=== PATIENT | female | born 1965 | race Caucasian/White ===

== ENCOUNTER 2018-06-11 14:36 | Emergency (ER) | payer MEDICAID, OTHER ==
[~2018-06-11] VITALS: Ht 157.5 cm; Wt 65.8 kg
--- NOTE | 2018-06-11 15:09 | ED General ---
General Chief Complaint: Cardiac/General Problems Stated Complaint: HTN Source of Information: Patient, Family Exam Limitations: No Limitations History of Present Illness Date Seen by Provider: Jun 11, 2018 Time Seen by Provider: 15:02 Initial Comments This 52-year-old female presents out of her blood pressure medicine. The patient takes hydrochlorothiazide 50 mg a day and lisinopril 20 mg a day. Patient called EMS. The patient's blood pressure was elevated at the scene but the patient was asymptomatic. Patient was given a nitroglycerin in route by the paramedics and the patient's blood pressure decreased from a systolic greater than 200 to a systoloc of 180 in the emergency department. Date is the patient's intent to employ [facility] next week for further medical care. Allergies and Home Medications Patient Home Medication List Home Medication List Reviewed: Yes Review of Systems Constitutional: No chills, No fever EENTM: No hearing loss Respiratory: No cough Cardiovascular: No chest pain Gastrointestinal: No abdominal pain Genitourinary: No decreased output : No Musculoskeletal: No back pain Skin: No change in color Psychiatric/Neurological: No Symptoms Reported Hematologic/Lymphatic: No Symptoms Reported Immunological/Allergic: no symptoms reported Past Xenmqfv-Gygwuh-Fhyzjy Hx Past Med/Social Hx: Reviewed Nursing Past Med/Soc Hx Physical Exam Vital Signs Capillary Refill : Height, Weight, BMI Height: '" Weight: lbs. oz. kg; BMI Method: General Appearance: No Apparent Distress, WD/WN Eyes: Bilateral Eye Normal Inspection, Bilateral Eye PERRL HEENT: Normal ENT Inspection Neck: Normal Inspection Respiratory: Lungs Clear Cardiovascular: Regular Rate, Rhythm Gastrointestinal: Normal Bowel Sounds Neurologic/Psychiatric: Alert, Oriented x3, No Motor/Sensory Deficits, Normal Mood/Affect Skin: Normal Color, Warm/Dry Progress/Results/Core Measures Suspected Sepsis SIRS Temperature: Pulse: Respiratory Rate: Blood Pressure / Mean: Results/Orders Vital Signs/I&O Capillary Refill : Progress Note : Time: 15:10 Progress Note The patient was given 30 day prescriptions for lisinopril 20 mg once a day and Hydrocort thiazide 50 mg once a day. She was asked to follow-up with [facility] on Thursday. She is asked to return for any problems or questions. Departure Impression Primary Impression: Hypertension Qualified Codes: I10 - Essential (primary) hypertension Disposition: HOME, SELF-CARE Condition: Improved Departure-Patient Inst. Decision time for Depature: 15:11 Referrals: [facility],LOCAL PHYSICIAN (PCP) Primary Care Physician Patient Instructions: High Blood Pressure (DC) Add. Discharge Instructions: Hydrochlorothiazide and lisinopril as prescribed. Close follow-up with health Thursday. Return if any problems or questions. All discharge instructions reviewed with patient and/or family. Voiced understanding. HAWA WOODY MD Jun 11, 2018 15:09
[2018-06-11 15:28] VITALS: BP 170/87
== END 2018-06-11 15:28 | disposition home or self-care (01) ==
LOC: ER 14:38
DX: I10 Essential (primary) hypertension (principal)

== ENCOUNTER → 2018-10-19 | Outpatient (CLI) | payer MEDICAID | LOC: CARD 12:28 | PROVIDERS: ATTEND Nurse Practitioner Primary Care | DX: R01.1 Cardiac murmur, unspecified (principal) | CPT/HCPCS: 93306 ==

== ENCOUNTER 2021-06-20 12:55 | Inpatient (IN) | payer MEDICAID ==
[~2021-06-20] VITALS: Ht 157 cm; Wt 65.4 kg
[2021-06-20] MEDS ORDERED: NS IV 500 ML 500 ML IV ONE (13:15)
--- NOTE | 2021-06-20 13:23 | ED Syncope ---
General Chief Complaint: Dizziness/Syncope Stated Complaint: COVID +,SYNCOPE Source of Information: Patient Exam Limitations: No Limitations History of Present Illness Date Seen by Provider: Jun 20, 2021 Time Seen by Provider: 12:59 Initial Comments Patient to ER by EMS from [facility] with chief complaint that she went in for routine diabetes checkup to get restarted on her Metformin. She was having some coughing but smokes up until about 2 or 3 days ago. She also endorsed some shortness of air and near syncope. While coughing she passed out. Her blood sugar was normal and her Covid was positive. She says she is had some subjective fevers and shortness of air for the past 2-3 days. No nausea vomiti ng or diarrhea. No Covid vaccination. She has COPD. No chest pain or abdominal pain. Allergies and Home Medications Allergies Coded Allergies: Penicillins (Verified Allergy, Unknown, 06/20/21) Patient Home Medication List Home Medication List Reviewed: Yes Review of Systems Constitutional: No chills, No diaphoresis EENTM: No ear discharge, No ear pain Respiratory: cough; No phlegm; short of breath; No stridor, No wheezing Cardiovascular: No chest pain, No Hx of Intervention, No palpitations Gastrointestinal: No abdominal pain, No constipation, No diarrhea, No nausea Genitourinary: No discharge, No dysuria Musculoskeletal: No back pain, No joint pain All Other Systems Reviewed Negative Unless Noted: Yes Past Dnpxvmf-Unrciw-Glyyng Hx Patient Social History Tobacco Use?: No Use of E-Cig and/or Vaping dev: No Substance use?: No Past Medical History Surgeries: Yes Section Respiratory: No Cardiac: Yes Hypertension Neurological: No Genitourinary: No Gastrointestinal: No Musculoskeletal: No Endocrine: No HEENT: No Cancer: No Psychosocial: Yes Anxiety Integumentary: No Physical Exam Vital Signs Vital Signs - First Documented 06/20/21 12:58 Temp 37.6 Pulse 85 Resp 19 B/P (MAP) 95/61 (72) Pulse Ox 93 O2 Delivery Room Air Capillary Refill : Height, Weight, BMI Height: 5'2.00" Weight: 145lbs. oz. 65.679859ni; BMI Method:Stated General Appearance: WD/WN, Mild Distress HEENT: PERRL/EOMI, Pharynx Normal, Moist Mucous Membranes Neck: Full Range of Motion, Normal Inspection Cardiovascular: Regular Rate, Rhythm, No Edema, Normal Peripheral Pulses Respiratory: Chest Non Tender, Lungs Clear, Normal Breath Sounds, No Accessory Muscle Use, No Respiratory Distress Gastrointestinal: Normal Bowel Sounds, No Organomegaly, Non Tender, Soft Neurologic/Psychiatric: Alert, Oriented x3, No Motor/Sensory Deficits Cranial Nerves: Normal Hearing, Normal Speech Skin: Normal Color, Warm/Dry Focused Exam Sepsis Stage: Septic Shock Possible Source: Pulmonary Time of Focused Exam: 15:54 Respiratory: Lungs Clear, Normal Breath Sounds, Accessory Muscle Use (Mild), Respiratory Distress (Moderate with oxygen saturations around 90% on room air and respiratory rate 30-35.) Cardiovascular: Regular Rate, Rhythm, Normal Peripheral Pulses, Tachycardia Capillary Refill: Less Than 3 Seconds Peripheral Pulses: 2+ Radial Pulses (R), 2+ Radial Pulses (L) Skin: normal color, warm/dry Within 3hrs of presentation: Admin fluids, Admin ABX, Blood cultures prior to ABX's, Focus exam, Lactate level, Vasopressin therapy Progress/Results/Core Measures Results/Orders Lab Results Laboratory Tests Test 06/20/21 13:15 06/20/21 13:34 Range/Units White Blood Count 8.9 4.3-11.0 10^3/uL Red Blood Count 4.64 3.80-5.11 10^6/uL Hemoglobin 13.4 11.5-16.0 g/dL Hematocrit 39 35-52 % Mean Corpuscular Volume 84 80-99 fL Mean Corpuscular Hemoglobin 29 25-34 pg Mean Corpuscular Hemoglobin Concent 34 32-36 g/dL Red Cell Distribution Width 12.6 10.0-14.5 % Platelet Count 127 L 130-400 10^3/uL Mean Platelet Volume 11.9 9.0-12.2 fL Immature Granulocyte % (Auto) 1 % Neutrophils (%) (Auto) 66 42-75 % Lymphocytes (%) (Auto) 12 12-44 % Monocytes (%) (Auto) 21 H 0-12 % Eosinophils (%) (Auto) 0 0-10 % Basophils (%) (Auto) 0 0-10 % Neutrophils # (Auto) 5.9 1.8-7.8 10^3/uL Lymphocytes # (Auto) 1.1 1.0-4.0 10^3/uL Monocytes # (Auto) 1.9 H 0.0-1.0 10^3/uL Eosinophils # (Auto) 0.0 0.0-0.3 10^3/uL Basophils # (Auto) 0.0 0.0-0.1 10^3/uL Immature Granulocyte # (Auto) 0.1 0.0-0.1 10^3/uL Neutrophils % (Manual) 69 % Lymphocytes % (Manual) 15 % Monocytes % (Manual) 16 % Eosinophils % (Manual) 0 % Basophils % (Manual) 0 % Band Neutrophils 0 % Blood Morphology Comment NORMAL Sodium Level 129 L 135-145 MMOL/L Potassium Level 3.8 3.6-5.0 MMOL/L Chloride Level 93 L 98-107 MMOL/L Carbon Dioxide Level 22 21-32 MMOL/L Anion Gap 14 5-14 MMOL/L Blood Urea Nitrogen 48 H 7-18 MG/DL Creatinine 2.06 H 0.60-1.30 MG/DL Estimat Glomerular Filtration Rate 25 BUN/Creatinine Ratio 23 Glucose Level 282 H 70-105 MG/DL Calcium Level 8.2 L 8.5-10.1 MG/DL Corrected Calcium 8.7 8.5-10.1 MG/DL Total Bilirubin 0.9 0.1-1.0 MG/DL Aspartate Amino Transf (AST/SGOT) 30 5-34 U/L Alanine Aminotransferase (ALT/SGPT) 33 0-55 U/L Alkaline Phosphatase 78 40-136 U/L Troponin I 0.032 H <0.028 NG/ML B-Type Natriuretic Peptide 11.3 <100.0 PG/ML Total Protein 7.0 6.4-8.2 GM/DL Albumin 3.4 3.2-4.5 GM/DL Procalcitonin 0.40 H <0.10 NG/ML Blood Gas Puncture Site RRAD Blood Gas Patient Temperature 99.6 Arterial Blood pH 7.42 7.37-7.43 Arterial Blood Partial Pressure CO2 37 35-45 MMHG Arterial Blood Partial Pressure O2 61 L 79-93 MMHG Arterial Blood HCO3 24 23-27 MMOL/L Arterial Blood Total CO2 24.6 21.0-31.0 MMOL/L Arterial Blood Oxygen Saturation 91 L 94-100 % Arterial Blood Base Excess -0.3 -2.5-2.5 MMOL/L Delgado Test POS Blood Gas Ventilator Setting NO Blood Gas Inspired Oxygen 0 My Orders Orders - ONUR RODRIGUEZ Ed Iv/Invasive Line Start (06/20/21 13:14) Ns Iv 500 Ml (Sodium Chloride 0.9%) (06/20/21 13:15) Covid-19 External Lab Results (06/20/21 13:14) Cbc With Automated Diff (06/20/21 13:14) Comprehensive Metabolic Panel (06/20/21 13:14) Orthostatic Vital Signs (Adult (06/20/21 13:14) Ua Culture If Indicated (06/20/21 13:14) Chest 1 View, Ap/Pa Only (06/20/21 13:14) Ekg Tracing (06/20/21 13:14) Continuous Ekg Monitoring (06/20/21 13:14) Troponin I (06/20/21 13:14) BNP (06/20/21 13:14) Manual Differential (06/20/21 13:15) Arterial Blood Gas (06/20/21 13:38) Cefepime Injection (Maxipime Injection) (06/20/21 15:00) Azithromycin Injection (Zithromax Inject (06/20/21 15:00) Procalcitonin (Pct) (06/20/21 14:54) Fibrin Degradation Products (06/20/21 14:54) Medications Given in ED Current Medications Medications Dose Ordered Sig/Jayde Route Start Time Stop Time Status Last Admin Dose Admin Azithromycin 500 mg/Sodium Chloride 250 ml @ 250 mls/hr ONCE ONCE IV 06/20/21 15:00 06/20/21 15:59 06/20/21 15:17 250 MLS/HR Cefepime HCl 1000 mg/Sterile Water 10 ml @ 200 mls/hr ONCE ONCE IV 06/20/21 15:00 06/20/21 15:02 DC 06/20/21 15:12 200 MLS/HR Sodium Chloride 500 ml @ 0 mls/hr Q0M ONCE IV 06/20/21 13:15 06/20/21 13:18 DC 06/20/21 13:40 1,000 MLS/HR Vital Signs/I&O 06/20/21 12:58 Temp 37.6 Pulse 85 Resp 19 B/P (MAP) 95/61 (72) Pulse Ox 93 O2 Delivery Room Air Progress Progress Note : Time: 13:24 Progress Note Aseptic vital signs with soft blood pressure. Plan to give her 1500 cc which should be around 20 to 30 mL/kg and reassess. Chest x-ray. If there is no objective signs of a bacterial pneumonia then will not initiate antibiotics or more fluids. Initial ECG Impression Date: Jun 20, 2021 Initial ECG Impression Time: 13:22 Initial ECG Rate: 79 Initial ECG Intervals: QT (472) Initial ECG Impression: Normal, Nonspecific Changes Initial ECG Comparisson: No Previous ECG Available Comment Normal sinus rhythm without clinically relevant ST changes. Diagnostic Imaging Diagonstic Imaging: Xray Plain Films/CT/US/NM/MRI: chest Comments [facility] [place], [place] NAME: [facility] REC#: [id number] PT STATUS: REG ER : [id number] PHYSICIAN: ONUR RODRIGUEZ MD ADMIT DATE: 06/20/21/ER Draft Date of Exam:06/20/21 CHEST 1 VIEW, AP/PA ONLY Indication: COVID patient. No priors Findings: There is vague increased pulmonary opacity in the medial left lung in its mid to lower 3rd, this may be subtle groundglass densities owing to COVID. The lungs otherwise clear and there is no failure pattern, effusion or pneumothorax. Impression: Equivocal developing left perihilar infiltrate. No other potential acute finding. Dictated on workstation # [id number] Dict: 06/20/21 1428 Trans: 06/20/21 1431 CV [id number] Interpreted by: PETER PERKINS Electronically signed by: Reviewed: Reviewed by Me Departure Communication (Admissions) Time/Spoke to Admitting Phy: 14:00 Discussed the case with Dr. Richards and she would like the patient to have azithromycin and cefepime coverage for now. PICC line to be placed. ICU placement. Impression Primary Impression: Syncope Qualified Codes: R55 - Syncope and collapse Additional Impressions: COVID-19 Acute hypoxemic respiratory failure Hypokalemia Septic shock Pneumonia Qualified Codes: J18.9 - Pneumonia, unspecified organism Disposition: ADMITTED INPATIENT Condition: Critical Admissions Decision to Admit Reason: Admit from ER (General) Decision to Admit/Date: Jun 20, 2021 Time/Decision to Admit Time: 13:44 Departure-Patient Inst. Referrals: [facility] (PCP/Family) Primary Care Physician ONUR RODRIGUEZ Jun 20, 2021 13:23
[2021-06-20 13:29] LABS: BASOPHILS % (AUTO) 0 % (0-10); EOSINOPHILS % (AUTO) 0 % (0-10); HEMATOCRIT 39 % (35-52); HEMOGLOBIN 13.4 g/dL (11.5-16.0); LYMPHOCYTES # (AUTO) 1.1 10^3/uL (1.0-4.0); LYMPHOCYTES % (AUTO) 12 % (12-44); MEAN CORPUSCULAR HEMOGLOBIN 29 pg (25-34); MEAN CORPUSCULAR HGB CONC 34 g/dL (32-36); MEAN CORPUSCULAR VOLUME 84 fL (80-99); MEAN PLATELET VOLUME 11.9 fL (9.0-12.2); MONOCYTES # (AUTO) 1.9 10^3/uL (0.0-1.0); MONOCYTES % (AUTO) 21 % (0-12); NEUTROPHILS # (AUTO) 5.9 10^3/uL (1.8-7.8); NEUTROPHILS % (AUTO) 66 % (42-75); PLATELET COUNT 127 10^3/uL (130-400); WHITE BLOOD COUNT 8.9 10^3/uL (4.3-11.0)
[2021-06-20 13:35] LABS: ALBUMIN 3.4 GM/DL (3.2-4.5); POTASSIUM 3.8 MMOL/L (3.6-5.0)
[2021-06-20 13:36] LABS: CALCIUM 8.2 MG/DL (8.5-10.1)
[2021-06-20 13:39] LABS: BILIRUBIN,TOTAL 0.9 MG/DL (0.1-1.0)
[2021-06-20 13:41] LABS: CREATININE SERUM 2.06 MG/DL (0.60-1.30)
[2021-06-20 13:51] LABS: BAND NEUTROPHILS 0 %; BASOPHILS % (MANUAL) 0 %; EOSINOPHILS % (MANUAL) 0 %; LYMPHOCYTES % (MANUAL) 15 %; MONOCYTES % (MANUAL) 16 %; NEUTROPHILS % (MANUAL) 69 %; RBC MORPH NORMAL
[2021-06-20 13:52] LABS: ABG BASE EXCESS -0.3 MMOL/L (-2.5-2.5); ABG OXYGEN SATURATION 91 % (94-100); ABG PCO2 37 MMHG (35-45); ABG PH 7.42 (7.37-7.43); ABG PO2 61 MMHG (79-93); ABG TCO2 24.6 MMOL/L (21.0-31.0)
[2021-06-20 13:53] LABS: ALLENS TEST POS; INSPIRED O2 0; PATIENT TEMP 99.6; VENTILATOR NO
--- NOTE | 2021-06-20 14:31 | Diagnostic Imaging Report ---
Indication: COVID patient. No priors Findings: There is vague increased pulmonary opacity in the medial left lung in its mid to lower 3rd, this may be subtle groundglass densities owing to COVID. The lungs otherwise clear and there is no failure pattern, effusion or pneumothorax. Impression: Equivocal developing left perihilar infiltrate. No other potential acute finding. Dictated by: Dictated on workstation # [id number]
[2021-06-20] MEDS ORDERED: CEFEPIME INJECTION 1,000 MG in WATER (STERILE) FOR INJECTION 10 ML IV ONE (15:00)
[2021-06-20] MEDS ORDERED: AZITHROMYCIN INJECTION 500 MG in NS (IVPB) 250 ML IV ONE (15:00)
--- NOTE | 2021-06-20 16:21 | Diagnostic Imaging Report ---
INDICATION: PICC line placement FINDINGS: Right PICC catheter tip overlies the lower SVC. Heart size within normal limits. The left perihilar and basilar infiltrate again noted, somewhat more dense radiographically. This has either progressed or its on a technical basis. The right lung nonfocal. No effusion or pneumothorax. IMPRESSION: PICC line projects in good position, the tip at the lower SVC. Left mid to lower lung infiltrate may have progressed in density. Dictated by: Dictated on workstation # [id number]
[2021-06-20] MEDS ORDERED: LACTATED RINGERS 1,000 ML IV ONE (16:33)
[2021-06-20] MEDS ORDERED: ONDANSETRON 4 MG/2 ML (SDV) Z0FRAN IV PRN (16:45)
[2021-06-20] MEDS ORDERED: EPINEPHrine 1 MG INJECTION 4 MG in NS (IVPB) 248 ML IV SCH (16:45)
[2021-06-20] MEDS ORDERED: ACETAMINOPHEN 650 MG SUPP (TYLENOL) PR PRN (16:45)
[2021-06-20 16:56] LABS: BILIRUBIN,URINE NEGATIVE (NEGATIVE); CLARITY,URINE CLEAR; COLOR,URINE YELLOW; GLUCOSE, URINE (UA) TRACE (NEGATIVE); KETONES,URINE NEGATIVE (NEGATIVE); LEUKOCYTE ESTERASE ,URINE TRACE (NEGATIVE); NITRITE,URINE NEGATIVE (NEGATIVE); PH,URINE 5.5 (5-9); PROTEIN,URINE NEGATIVE (NEGATIVE)
[2021-06-20 17:02] LABS: BACTERIA,URINE TRACE /HPF; HYALINE CASTS, URINE 0-2 /LPF
[2021-06-20] MEDS: NOREPINEPHRINE 8 MG/250 ML 250 ML IV SCH (17:49)
[2021-06-20] MEDS: LACTATED RINGERS 1,000 ML IV SCH (17:49)
[2021-06-20] MEDS: VASOPRESSIN INJECTION 20 UNIT in NS (IVPB) 100 ML IV SCH (17:50)
--- NOTE | 2021-06-20 19:10 | History & Physical-Hospitalist ---
History of Present Illness HPI/Chief Complaint Chief complaint: Severe sepsis for pneumonia and COVID-19 History present illness: This is a 55-year-old white female unvaccinated against COVID-19 who presented to the ER with weakness found to have hypotension from pn eumonia and COVID-19. She received aggressive IV fluids and she is currently doing very well. Patient reports eating well at suppertime today. We will monitor in the ICU due to hypotension and continue IV antibiotics. Source: patient Exam Limitations: no limitations Date Seen 06/20/21 Time Seen by a Provider: 18:30 Attending Physician Cristiane Richards DO [facility] Referring Physician Date of Admission Jun 20, 2021 at 15:00 Home Medications & Allergies Home Medications Reviewed patient Home Medication Reconciliation performed by pharmacy medication reconciliations thermal technician and/or nursing. Patients Allergies have been reviewed. Allergies Allergies Coded Allergies Penicillins (Verified Allergy, Unknown, 06/20/21) Past Nvegysg-Mhiorc-Ziwtxd Hx Patient Social History Marrital Status: single Employed/Student: unemployed Tobacco Use?: Yes Tobacco type used: Cigarettes Smoking Status: Current Everyday Smoker Smokeless Tobacco Frequency: Current Everyday User Use of E-Cig and/or Vaping dev: No Use of E-Cig and/or Vaping Romel: Never a User Substance use?: No Alcohol Use?: No Pt feels they are or have been: No Immunizations Up To Date Tetanus Booster (TDap): Unknown Current Status status: No Advance Directives: No Communicates: Verbally Primary Language: Algerian Preferred Spoken Language: Algerian Is interpretation needed?: No Implanted or Applied Medical D: None Past Medical History Surgeries: Section Hypertension Anxiety Review of Systems Constitutional: see HPI, fever, malaise, weakness Respiratory: cough, dyspnea on exertion Physical Exam Physical Exam Vital Signs Vital Signs - First Documented 06/20/21 06/20/21 12:58 15:59 Temp 37.6 Pulse 85 Resp 19 B/P (MAP) 95/61 (72) Pulse Ox 93 O2 Delivery Room Air O2 Flow Rate 2.00 Capillary Refill : Less Than 3 Seconds Height, Weight, BMI Height: 5'2.00" Weight: 145lbs. oz. 65.751315ko; 25.39 BMI Method:Stated General Appearance: No Apparent Distress, Chronically ill, Thin, Other (Appears older than stated age) Eyes: Right Eye Normal Inspection, Right Eye PERRL HEENT: PERRL/EOMI, Normal ENT Inspection, Pharynx Normal, Moist Mucous Membranes Neck: Full Range of Motion, Normal Inspection, Non Tender Respiratory: Chest Non Tender, Lungs Clear, No Accessory Muscle Use, No Respiratory Distress, Decreased Breath Sounds Cardiovascular: Regular Rate, Rhythm, No Edema, No Gallop, No JVD, No Murmur, Normal Peripheral Pulses Gastrointestinal: Normal Bowel Sounds, No Organomegaly, No Pulsatile Mass, Non Tender, Soft Back: Normal Inspection, No CVA Tenderness, No Vertebral Tenderness Extremity: Normal Capillary Refill, Normal Inspection, Normal Range of Motion, Non Tender, No Calf Tenderness, No Pedal Edema Neurologic/Psychiatric: Alert, Oriented x3, No Motor/Sensory Deficits, Normal Mood/Affect Skin: Normal Color, Warm/Dry Lymphatic: No Adenopathy Results Results/Procedures Labs Laboratory Tests 06/20/21 13:15 06/21/21 03:00 Patient resulted labs reviewed. Assessment/Plan Admission Diagnosis Assessment: Severe sepsis Pneumonia COVID-19 Hypertension Plan: ICU care Monitor blood pressure IV antibiotics Admission Status: Inpatient Order (span 2 midnights) Reason for Inpatient Admission: Pneumonia Diagnosis/Problems Diagnosis/Problems (1) Acute hypoxemic respiratory failure Status: Acute (2) COVID-19 Status: Acute (3) Syncope Status: Acute Qualifiers: Syncope type: unspecified Qualified Codes: R55 - Syncope and collapse (4) Hypokalemia Status: Acute (5) Pneumonia Status: Acute Qualifiers: Pneumonia type: due to unspecified organism Laterality: unspecified laterality Lung location: unspecified part of lung Qualified Codes: J18.9 - Pneumonia, unspecified organism CRISTIANE RICHARDS DO Jun 20, 2021 19:09
[2021-06-20 20:17] VITALS: BP 103/62
[2021-06-20] MEDS ORDERED: RT-ALBUTEROL INHALER HFA (VENTOLIN HFA) 18 GM IH PRN (20:30)
[2021-06-20] MEDS: inSUlin ASPART (NovoLOG) 1 UNIT/0.01 ML (CHARGE PER UNIT) SC SCH (21:17)
[2021-06-20] MEDS: RT-ALBUTEROL INHALER HFA (VENTOLIN HFA) 18 GM IH SCH (21:36)
[2021-06-20] MEDS: ACETAMINOPHEN 325 MG TABLET PO PRN (22:04)
[2021-06-21] MEDS: LACTATED RINGERS 1,000 ML IV SCH ×4 (00:18→20:26)
[2021-06-21] MEDS: VASOPRESSIN INJECTION 20 UNIT in NS (IVPB) 100 ML IV SCH ×3 (02:12→15:23)
[2021-06-21] MEDS: RT-ALBUTEROL INHALER HFA (VENTOLIN HFA) 18 GM IH SCH ×4 (02:13→21:27)
[2021-06-21] MEDS ORDERED: CEFEPIME 1,000 MG/SWFI 10 ML IV PUSH IV SCH ×2 (03:00)
[2021-06-21 03:26] LABS: BASOPHILS % (AUTO) 0 % (0-10); EOSINOPHILS % (AUTO) 0 % (0-10); HEMATOCRIT 35 % (35-52); LYMPHOCYTES # (AUTO) 1.8 10^3/uL (1.0-4.0); LYMPHOCYTES % (AUTO) 32 % (12-44); MEAN CORPUSCULAR HEMOGLOBIN 29 pg (25-34); MEAN CORPUSCULAR HGB CONC 35 g/dL (32-36); MEAN CORPUSCULAR VOLUME 84 fL (80-99); MEAN PLATELET VOLUME 11.7 fL (9.0-12.2); MONOCYTES % (AUTO) 19 % (0-12); NEUTROPHILS # (AUTO) 2.7 10^3/uL (1.8-7.8); NEUTROPHILS % (AUTO) 49 % (42-75); PLATELET COUNT 150 10^3/uL (130-400); WHITE BLOOD COUNT 5.5 10^3/uL (4.3-11.0)
[2021-06-21 03:38] LABS: POTASSIUM 3.2 MMOL/L (3.6-5.0)
[2021-06-21 03:40] LABS: CALCIUM 7.9 MG/DL (8.5-10.1)
[2021-06-21 03:44] LABS: CREATININE SERUM 0.83 MG/DL (0.60-1.30); PHOSPHORUS 2.3 MG/DL (2.3-4.7)
[2021-06-21 03:46] LABS: MAGNESIUM 2.1 MG/DL (1.6-2.4)
[2021-06-21] MEDS: POTASSIUM CL 10MEQ/50ML IVPB 50 ML IV SCH ×4 (05:26→06:50)
[2021-06-21] MEDS: inSUlin ASPART (NovoLOG) 1 UNIT/0.01 ML (CHARGE PER UNIT) SC SCH ×4 (05:27→20:45)
[2021-06-21] MEDS: KCL 20 MEQ TAB (K-DUR) PO SCH (06:00)
[2021-06-21] MEDS: MAGNESIUM 1 GM/100 ML IVPB 100 ML IV SCH (06:00)
--- NOTE | 2021-06-21 06:17 | Progress Note - Hospitalist ---
Subjective HPI/CC On Admission Date Seen by Provider: Jun 21, 2021 Time Seen by Provider: 09:30 Chief complaint: Severe sepsis for pneumonia and COVID-19 History present illness: This is a 55-year-old white female unvaccinated against COVID-19 who presented to the ER with weakness found to have hypotension from pneumonia and COVID-19. She received aggressive IV fluids and she is currently doing very well. Patient reports eating well at suppertime today. We will monitor in the ICU due to hypotension and continue IV antibiotics. Subjective/Events-last exam Pt doing very well Hypotension is chronic MAP is good Transferring to 4th floor Denies any significant new issues No significant hypoxia Review of Systems General: Fatigue, Malaise Neurological: Weakness Focused Exam Lactate Level 06/20/21 19:15: Lactic Acid Level 1.21 Time of Focused Exam: 15:54 Objective Exam Vital Signs Vital Signs Date Time Temp Pulse Resp B/P (MAP) Pulse Ox O2 Delivery O2 Flow Rate FiO2 06/21/21 20:08 38.2 84 22 112/61 (78) 91 Nasal Cannula 2.50 Capillary Refill : Less Than 3 Seconds General Appearance: No Apparent Distress, WD/WN, Chronically ill Respiratory: Lungs Clear, Normal Breath Sounds Cardiovascular: Regular Rate, Rhythm Neurologic/Psychiatric: Alert, Oriented x3 Results/Procedures Lab Laboratory Tests 06/21/21 03:00 Patient resulted labs reviewed. Assessment/Plan Assessment and Plan Assess & Plan/Chief Complaint Assessment: Severe sepsis Pneumonia COVID-19 Hypertension Plan: ICU care Monitor blood pressure IV antibiotics 06/21/2021: IV antibiotics Transfer the floor Chronically ill Diagnosis/Problems Diagnosis/Problems (1) Acute hypoxemic respiratory failure Status: Acute (2) COVID-19 Status: Acute (3) Syncope Status: Acute Qualifiers: Syncope type: unspecified Qualified Codes: R55 - Syncope and collapse (4) Hypokalemia Status: Acute (5) Pneumonia Status: Acute Qualifiers: Pneumonia type: due to unspecified organism Laterality: unspecified laterality Lung location: unspecified part of lung Qualified Codes: J18.9 - Pneumonia, unspecified organism MUSA ORTA DO Jun 21, 2021 06:17
--- NOTE | 2021-06-21 07:07 | Diagnostic Imaging Report ---
INDICATION: Hypoxemia Portable chest 3:08 AM Right upper extremity PICC line tip projects over the SVC. There is some peripheral infiltrate in the left lung. Questionable developing infiltrate right lower lateral chest. There are no effusions. IMPRESSION: Peripheral infiltrate left lung appears slightly worse compared to previous day. There is some questionable developing infiltrate in the right lower lung. Dictated by: Dictated on workstation # [id number]
[2021-06-21] MEDS: NICOTINE 21 MG (NICODERM) PATCH TD SCH (09:19)
[2021-06-21] MEDS: CEFEPIME 1,000 MG/SWFI 10 ML IV PUSH IV SCH ×6 (09:19→20:24)
--- NOTE | 2021-06-21 09:44 | Tele-ICU Consult ---
History of Present Illness History of Present Illness Date Seen by Provider: Jun 20, 2021 Time Seen by Provider: 17:15 Date of Admission Allergies and Home Medications Allergies Coded Allergies: Penicillins (Verified Allergy, Unknown, 06/20/21) Past Medical/Social/Family Hx Patient Social History Marrital Status: single Employed/Student: unemployed Tobacco Use?: Yes Tobacco type used: Cigarettes Smoking Status: Current Everyday Smoker Smokeless Tobacco Frequency: Current Everyday User Use of E-Cig and/or Vaping dev: No E-Cig and/or Vaping Freq: Never a User Substance use?: No Alcohol Use?: No Pt stated abuse/neglect: No Immunizations Up To Date Influenza Vaccine Up-to-Date: Yes; Up-to-Date Tetanus Booster (TDap): Unknown Current Status status: No Advance Directives: No Communicates: Verbally Primary Language: Hungarian Preferred Spoken Language: Hungarian Is interpretation needed?: No Implanted or Applied Medical D: None Review of Systems Constitutional: see HPI Sepsis Event Evaluation Height, Weight, BMI Height: 5'2.00" Weight: 145lbs. oz. 65.799519sw; 25.39 BMI Method:Stated Exam Exam Patient acknowledged, consented, and participated in this virtual visit which was conducted using real time audio/video Vital Signs Date Time Temp Pulse Resp B/P (MAP) Pulse Ox O2 Delivery O2 Flow Rate FiO2 06/21/21 09:00 85 33 89/69 (76) 90 Nasal Cannula 2.00 06/21/21 08:42 93 Nasal Cannula 2.00 06/21/21 08:00 82 39 98/61 (73) 95 Nasal Cannula 2.00 06/21/21 08:00 36.7 06/21/21 07:00 83 06/21/21 07:00 97 32 89/57 (68) 93 Nasal Cannula 2.00 06/21/21 06:05 90 26 97/58 (71) 95 Nasal Cannula 2.00 06/21/21 05:00 80 22 89/60 (70) 95 Nasal Cannula 2.00 06/21/21 04:00 80 28 95/63 (74) 96 Nasal Cannula 2.00 06/21/21 04:00 97 Nasal Cannula 2.00 06/21/21 03:00 85 28 86/61 (69) 95 Nasal Cannula 2.00 06/21/21 02:14 94 Nasal Cannula 2.00 06/21/21 02:00 78 20 95/56 (69) 93 Nasal Cannula 2.00 06/21/21 01:00 83 20 84/53 (63) 93 Nasal Cannula 2.00 06/21/21 00:54 84 06/21/21 00:00 94 Nasal Cannula 2.00 06/21/21 00:00 89 23 101/50 (67) 94 Nasal Cannula 2.00 06/20/21 23:00 93 34 92/54 (67) 94 Nasal Cannula 2.00 06/20/21 22:00 89 29 113/60 (77) 95 Nasal Cannula 2.00 06/20/21 21:36 Nasal Cannula 2.00 06/20/21 21:00 89 29 116/68 (84) 95 Nasal Cannula 2.00 06/20/21 20:17 36.4 92 95 06/20/21 20:00 93 14 120/49 (72) 95 Nasal Cannula 2.00 06/20/21 20:00 95 Nasal Cannula 2.00 06/20/21 19:00 90 27 121/80 (94) 93 Nasal Cannula 2.00 06/20/21 19:00 90 06/20/21 18:51 95 Nasal Cannula 2.00 06/20/21 18:00 92 27 103/62 (76) 95 Nasal Cannula 2.00 06/20/21 17:38 Nasal Cannula 2.00 06/20/21 16:45 86 31 88/64 (72) 97 Nasal Cannula 2.00 06/20/21 16:31 84 06/20/21 16:20 36.4 06/20/21 15:59 36.6 86 22 92/61 98 Nasal Cannula 2.00 06/20/21 12:58 37.6 85 19 95/61 (72) 93 Room Air I & O 06/21/21 07:00 Intake Total 3370 ml Output Total 1875 ml Balance 1495 ml Height & Weight Height: 5'2.00" Weight: 145lbs. oz. 65.064287ak; 25.39 BMI Method:Stated General Appearance: No Apparent Distress, Chronically ill, Mild Distress, Thin, Other (Appears older than stated age) HEENT: PERRL/EOMI, Normal ENT Inspection, Pharynx Normal, Moist Mucous Membranes Neck: Full Range of Motion, Normal Inspection, Non Tender Respiratory: Chest Non Tender, Lungs Clear, No Accessory Muscle Use, No Respiratory Distress, Decreased Breath Sounds Cardiovascular: Regular Rate, Rhythm, No Edema, No Gallop, No JVD, No Murmur, Normal Peripheral Pulses Capillary Refill: Less Than 3 Seconds Peripheral Pulses: 2+ Radial Pulses (R), 2+ Radial Pulses (L) Extremity: Normal Capillary Refill, Normal Inspection, Normal Range of Motion, Non Tender, No Calf Tenderness, No Pedal Edema Neurologic/Psychiatric: Alert, Oriented x3, No Motor/Sensory Deficits, Normal Mood/Affect Skin: Normal Color, Warm/Dry Lymphatic: No Adenopathy Results Lab Laboratory Tests 06/20/21 13:15 06/21/21 03:00 Assessment/Plan Assessment/Plan (Tele-ICU Physician , consultation) Available chart/ vitals / labs / Images reviewed H&P is from ER notes Patient's information available about PMH, Shx, Fhx allergy reviewed in EMR. ROS as per chart and RN report Patient admitted 06/20 after near-syncope nd SOB on routine office visit 06/20 to ICU 90% ra , Now in ICU, hemodynamically stable Video assessment done using teleICU camera, rest of exam as per RN Discussed with RN. 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 CKD - follow after IVgiven DM , hyperglycemia - as per PCP borderline hyponatremis ( corrected 131 smoker - nicotine patch Lines : PICC LEFT 06/20 , (Central Line Necessity Reviewed) Coyne: 06/20 OG: na Nutrition: po Analgesia: na Anxiety/ delirium na VTE Prophylaxis: heparin sq Stress Ulcer Prophylaxis: na Glycemic Control: as above Plans in collaboration with bedside consultants and IM MDs. Discussed with RN to reach out if any questions or concerns A total of 35minutes of critical care time was devoted to this patient today, required to treat and/or prevent further deterioration of critical care condition ( as above ) . PAOLA FINLEY MD Jun 21, 2021 09:44
[2021-06-21] MEDS: NICOTINE PATCH REMOVAL TP SCH (11:07)
[2021-06-21] MEDS ORDERED: VANCOMYCIN INJECTION 0.1 MG in NS (IVPB) 250 ML IV SCH (14:00)
[2021-06-21] MEDS: NOREPINEPHRINE 8 MG/250 ML 250 ML IV SCH (14:07)
[2021-06-21] MEDS ORDERED: VANCOMYCIN 1500 MG/NS 500 ML IVPB IV SCH ×2 (15:00)
[2021-06-21] MEDS: AZITHROMYCIN 500 MG/NS 250 ML IVPB IV SCH ×2 (15:23)
[2021-06-21] MEDS ORDERED: RT-ALBUINH INH (15:43)
[2021-06-21] MEDS ORDERED: HYDR50TA6 PO (15:43)
[2021-06-21] MEDS ORDERED: LISI20TA26 PO (15:43)
[2021-06-21] MEDS ORDERED: FLUT1BLS12 INH (15:43)
[2021-06-21] MEDS ORDERED: AMLO-251 PO (15:43)
[2021-06-21] MEDS: ACETAMINOPHEN 325 MG TABLET PO PRN (20:24)
[2021-06-22] MEDS: RT-ALBUTEROL INHALER HFA (VENTOLIN HFA) 18 GM IH SCH ×4 (01:51→20:56)
[2021-06-22] MEDS: VASOPRESSIN INJECTION 20 UNIT in NS (IVPB) 100 ML IV SCH (02:03)
[2021-06-22] MEDS: LACTATED RINGERS 1,000 ML IV SCH ×3 (02:03→15:37)
[2021-06-22] MEDS: VANCOMYCIN 1 GM/NS 250 ML IVPB IV SCH ×4 (02:04→15:35)
[2021-06-22] MEDS: CEFEPIME 1,000 MG/SWFI 10 ML IV PUSH IV SCH ×8 (02:04→20:56)
[2021-06-22 04:51] LABS: BASOPHILS % (AUTO) 0 % (0-10); EOSINOPHILS % (AUTO) 0 % (0-10); HEMATOCRIT 34 % (35-52); HEMOGLOBIN 11.4 g/dL (11.5-16.0); LYMPHOCYTES % (AUTO) 29 % (12-44); MEAN CORPUSCULAR HEMOGLOBIN 29 pg (25-34); MEAN CORPUSCULAR HGB CONC 34 g/dL (32-36); MEAN CORPUSCULAR VOLUME 85 fL (80-99); MEAN PLATELET VOLUME 11.6 fL (9.0-12.2); MONOCYTES # (AUTO) 1.2 10^3/uL (0.0-1.0); MONOCYTES % (AUTO) 18 % (0-12); NEUTROPHILS # (AUTO) 3.5 10^3/uL (1.8-7.8); NEUTROPHILS % (AUTO) 51 % (42-75); PLATELET COUNT 180 10^3/uL (130-400); WHITE BLOOD COUNT 6.8 10^3/uL (4.3-11.0)
[2021-06-22 05:03] LABS: ALBUMIN 2.6 GM/DL (3.2-4.5); POTASSIUM 3.2 MMOL/L (3.6-5.0)
[2021-06-22 05:04] LABS: CALCIUM 7.8 MG/DL (8.5-10.1)
[2021-06-22 05:06] LABS: TOTAL PROTEIN 5.5 GM/DL (6.4-8.2)
[2021-06-22 05:07] LABS: BILIRUBIN,TOTAL 0.6 MG/DL (0.1-1.0)
[2021-06-22 05:09] LABS: CREATININE SERUM 0.68 MG/DL (0.60-1.30); PHOSPHORUS 2.6 MG/DL (2.3-4.7)
[2021-06-22 05:12] LABS: MAGNESIUM 1.6 MG/DL (1.6-2.4)
[2021-06-22] MEDS: KCL 20 MEQ TAB (K-DUR) PO SCH (05:38)
[2021-06-22] MEDS: inSUlin ASPART (NovoLOG) 1 UNIT/0.01 ML (CHARGE PER UNIT) SC SCH ×4 (05:39→20:57)
[2021-06-22] MEDS: POTASSIUM CL 10MEQ/50ML IVPB 50 ML IV SCH (06:18)
[2021-06-22] MEDS: MAGNESIUM 1 GM/100 ML IVPB 100 ML IV SCH (06:18)
--- NOTE | 2021-06-22 06:56 | Progress Note - Hospitalist ---
Subjective HPI/CC On Admission Date Seen by Provider: Jun 22, 2021 Time Seen by Provider: 06:15 Chief complaint: Severe sepsis for pneumonia and COVID-19 History present illness: This is a 55-year-old white female unvaccinated against COVID-19 who presented to the ER with weakness found to have hypotension from pneumonia and COVID-19. She received aggressive IV fluids and she is currently doing very well. Patient reports eating well at suppertime today. We will monitor in the ICU due to hypotension and continue IV antibiotics. Subjective/Events-last exam Pt doing pretty well Very difficult to communicate at baseline which appears to be an intellectual delay Potassium 3.1, I am replacing that Overall feels like she is doing okay No significant pain reported Checked meds and labs No significant other concerns Review of Systems General: Fatigue, Malaise Pulmonary: Cough Focused Exam Lactate Level 06/20/21 19:15: Lactic Acid Level 1.21 Time of Focused Exam: 15:54 Objective Exam Vital Signs Vital Signs Date Time Temp Pulse Resp B/P (MAP) Pulse Ox O2 Delivery O2 Flow Rate FiO2 06/23/21 03:04 36.9 88 18 134/71 (92) 92 Nasal Cannula 1.50 Capillary Refill : Less Than 3 Seconds General Appearance: No Apparent Distress, WD/WN, Chronically ill Respiratory: No Accessory Muscle Use, No Respiratory Distress, Crackles, Decreased Breath Sounds Cardiovascular: Regular Rate, Rhythm Neurologic/Psychiatric: Alert, Oriented x3, Depressed Affect Results/Procedures Lab Laboratory Tests 06/23/21 02:18 Patient resulted labs reviewed. Assessment/Plan Assessment and Plan Assess & Plan/Chief Complaint Replace potassium assessment: Severe sepsis Pneumonia COVID-19 Hypertension Hypokalemia Plan: ICU care Monitor blood pressure IV antibiotics 06/21/2021: IV antibiotics Transfer the floor Chronically ill 06/22/2021: IV antibiotics Oxygen Monitor closely Replace potassium Diagnosis/Problems Diagnosis/Problems (1) Acute hypoxemic respiratory failure Status: Acute (2) COVID-19 Status: Acute (3) Syncope Status: Acute Qualifiers: Syncope type: unspecified Qualified Codes: R55 - Syncope and collapse (4) Hypokalemia Status: Acute (5) Pneumonia Status: Acute Qualifiers: Pneumonia type: due to unspecified organism Laterality: unspecified laterality Lung location: unspecified part of lung Qualified Codes: J18.9 - Pneumonia, unspecified organism MUSA ORTA DO Jun 22, 2021 06:56
[2021-06-22] MEDS ORDERED: KCL 20 MEQ TAB (K-DUR) PO ONE ×2 (07:00→10:46)
[2021-06-22] MEDS: NICOTINE 21 MG (NICODERM) PATCH TD SCH (10:43)
[2021-06-22] MEDS: ACETAMINOPHEN 325 MG TABLET PO PRN ×2 (10:43→18:01)
[2021-06-22] MEDS: NICOTINE PATCH REMOVAL TP SCH (10:44)
[2021-06-22] MEDS: AZITHROMYCIN 500 MG/NS 250 ML IVPB IV SCH ×2 (15:35)
[2021-06-23] MEDS: LACTATED RINGERS 1,000 ML IV SCH ×3 (00:31→11:42)
[2021-06-23] MEDS ORDERED: TROUGH ORDER-PHARMACY XX NR (02:00)
[2021-06-23] MEDS: RT-ALBUTEROL INHALER HFA (VENTOLIN HFA) 18 GM IH SCH ×4 (02:25→20:50)
[2021-06-23 03:28] LABS: POTASSIUM 4.2 MMOL/L (3.6-5.0)
[2021-06-23 03:29] LABS: CALCIUM 8.2 MG/DL (8.5-10.1)
[2021-06-23] MEDS: VANCOMYCIN 1 GM/NS 250 ML IVPB IV SCH ×4 (03:31→14:29)
[2021-06-23] MEDS: CEFEPIME 1,000 MG/SWFI 10 ML IV PUSH IV SCH ×8 (03:32→20:48)
[2021-06-23 03:34] LABS: CREATININE SERUM 0.6 MG/DL (0.60-1.30)
[2021-06-23] MEDS: KCL 20 MEQ TAB (K-DUR) PO SCH (05:00)
[2021-06-23] MEDS: inSUlin ASPART (NovoLOG) 1 UNIT/0.01 ML (CHARGE PER UNIT) SC SCH ×4 (05:55→20:45)
--- NOTE | 2021-06-23 06:51 | Progress Note - Hospitalist ---
Subjective HPI/CC On Admission Date Seen by Provider: Jun 23, 2021 Time Seen by Provider: 11:00 Chief complaint: Severe sepsis for pneumonia and COVID-19 History present illness: This is a 55-year-old white female unvaccinated against COVID-19 who presented to the ER with weakness found to have hypotension from pneumonia and COVID-19. She received aggressive IV fluids and she is currently doing very well. Patient reports eating well at suppertime today. We will monitor in the ICU due to hypotension and continue IV antibiotics. Subjective/Events-last exam Patient doing really well Denies any significant complaints Currently on 2 L of oxygen We will Hep-Lock her IV fluid Currently improved Review of Systems General: Fatigue, Malaise Pulmonary: Dyspnea Focused Exam Lactate Level Time of Focused Exam: 15:54 Objective Exam Vital Signs Vital Signs Date Time Temp Pulse Resp B/P (MAP) Pulse Ox O2 Delivery O2 Flow Rate FiO2 06/24/21 03:23 35.9 98 22 121/70 (87) 93 Nasal Cannula 2.00 Capillary Refill : Less Than 3 Seconds General Appearance: No Apparent Distress, WD/WN, Chronically ill Respiratory: No Accessory Muscle Use, No Respiratory Distress, Decreased Breath Sounds Cardiovascular: Regular Rate, Rhythm Neurologic/Psychiatric: Alert, Oriented x3 Results/Procedures Lab Patient resulted labs reviewed. Assessment/Plan Assessment and Plan Assess & Plan/Chief Complaint Assessment: Severe sepsis Pneumonia COVID-19 Hypertension Hypokalemia Plan: ICU care Monitor blood pressure IV antibiotics 06/21/2021: IV antibiotics Transfer the floor Chronically ill 06/22/2021: IV antibiotics Oxygen Monitor closely Replace potassium 06/23/2021: Maintain oxygen Monitor closely Diagnosis/Problems Diagnosis/Problems (1) Acute hypoxemic respiratory failure Status: Acute (2) COVID-19 Status: Acute (3) Syncope Status: Acute Qualifiers: Syncope type: unspecified Qualified Codes: R55 - Syncope and collapse (4) Hypokalemia Status: Acute (5) Pneumonia Status: Acute Qualifiers: Pneumonia type: due to unspecified organism Laterality: unspecified laterality Lung location: unspecified part of lung Qualified Codes: J18.9 - Pneumonia, unspecified organism MUSA ORTA DO Jun 23, 2021 06:51
[2021-06-23] MEDS: NICOTINE PATCH REMOVAL TP SCH (09:47)
[2021-06-23] MEDS: NICOTINE 21 MG (NICODERM) PATCH TD SCH (09:47)
[2021-06-23] MEDS: AZITHROMYCIN 500 MG/NS 250 ML IVPB IV SCH ×2 (14:29)
[2021-06-23 16:04] VITALS: BP 117/55
[2021-06-23 20:55] VITALS: BP 139/80
[2021-06-23 23:20] VITALS: BP 153/80
[2021-06-24] MEDS: RT-ALBUTEROL INHALER HFA (VENTOLIN HFA) 18 GM IH SCH ×2 (02:31→07:44)
[2021-06-24 03:23] VITALS: BP 121/70
[2021-06-24] MEDS: CEFEPIME 1,000 MG/SWFI 10 ML IV PUSH IV SCH ×8 (03:58→22:31)
[2021-06-24] MEDS: VANCOMYCIN 1 GM/NS 250 ML IVPB IV SCH ×2 (03:58)
[2021-06-24] MEDS: inSUlin ASPART (NovoLOG) 1 UNIT/0.01 ML (CHARGE PER UNIT) SC SCH ×4 (05:14→22:32)
--- NOTE | 2021-06-24 06:19 | Progress Note - Hospitalist ---
Subjective HPI/CC On Admission Date Seen by Provider: Jun 24, 2021 Time Seen by Provider: 10:00 Chief complaint: Severe sepsis for pneumonia and COVID-19 History present illness: This is a 55-year-old white female unvaccinated against COVID-19 who presented to the ER with weakness found to have hypotension from pneumonia and COVID-19. She received aggressive IV fluids and she is currently doing very well. Patient reports eating well at suppertime today. We will monitor in the ICU due to hypotension and continue IV antibiotics. Subjective/Events-last exam Patient originally felt pretty well enough to go home Physical therapy worked with her and stated she was not ready to go home yet Maintain on 2 L of oxygen Hospital Course: Pt had an uneventful hospital course. She was admitted for se psis and pneumonia with Covid-19. Pt was placed on empiric antibiotics and oxygen. Pt stabilized and we discontinued the Coyne catheter, heplocked the IV fluid, initiated PT and OT and she was found to need home oxygen at DC and was stable at that time. Review of Systems General: Fatigue, Malaise Pulmonary: Dyspnea Focused Exam Time of Focused Exam: 15:54 Objective Exam Vital Signs Vital Signs Date Time Temp Pulse Resp B/P (MAP) Pulse Ox O2 Delivery O2 Flow Rate FiO2 06/24/21 23:13 36.6 84 18 130/84 (99) 94 Nasal Cannula 2.00 Capillary Refill : Less Than 3 Seconds General Appearance: No Apparent Distress, WD/WN, Chronically ill Respiratory: No Accessory Muscle Use, No Respiratory Distress, Decreased Breath Sounds Cardiovascular: Regular Rate, Rhythm Neurologic/Psychiatric: Alert, Oriented x3 Results/Procedures Lab Laboratory Tests 06/24/21 06:37 Patient resulted labs reviewed. Assessment/Plan Assessment and Plan Assess & Plan/Chief Complaint Assessment: Severe sepsis Pneumonia COVID-19 Hypertension Hypokalemia Plan: ICU care Monitor blood pressure IV antibiotics 06/21/2021: IV antibiotics Transfer the floor Chronically ill 06/22/2021: IV antibiotics Oxygen Monitor closely Replace potassium 06/23/2021: Maintain oxygen Monitor closely 06/24/2021: Monitor closely PT and OT Diagnosis/Problems Diagnosis/Problems (1) Acute hypoxemic respiratory failure Status: Acute (2) COVID-19 Status: Acute (3) Syncope Status: Acute Qualifiers: Syncope type: unspecified Qualified Codes: R55 - Syncope and collapse (4) Hypokalemia Status: Acute (5) Pneumonia Status: Acute Qualifiers: Pneumonia type: due to unspecified organism Laterality: unspecified laterality Lung location: unspecified part of lung Qualified Codes: J18.9 - Pneumonia, unspecified organism MUSA ORTA DO Jun 24, 2021 06:19
[2021-06-24] MEDS: KCL 20 MEQ TAB (K-DUR) PO SCH ×2 (06:28→06:57)
[2021-06-24 06:45] LABS: BASOPHILS % (AUTO) 0 % (0-10); EOSINOPHILS # (AUTO) 0.1 10^3/uL (0.0-0.3); EOSINOPHILS % (AUTO) 1 % (0-10); HEMATOCRIT 34 % (35-52); HEMOGLOBIN 11.8 g/dL (11.5-16.0); LYMPHOCYTES % (AUTO) 20 % (12-44); MEAN CORPUSCULAR HEMOGLOBIN 30 pg (25-34); MEAN CORPUSCULAR HGB CONC 35 g/dL (32-36); MEAN CORPUSCULAR VOLUME 86 fL (80-99); MEAN PLATELET VOLUME 10.4 fL (9.0-12.2); MONOCYTES # (AUTO) 1.8 10^3/uL (0.0-1.0); MONOCYTES % (AUTO) 19 % (0-12); NEUTROPHILS # (AUTO) 5.4 10^3/uL (1.8-7.8); NEUTROPHILS % (AUTO) 55 % (42-75); PLATELET COUNT 281 10^3/uL (130-400); WHITE BLOOD COUNT 9.9 10^3/uL (4.3-11.0)
[2021-06-24 06:53] LABS: ALBUMIN 2.6 GM/DL (3.2-4.5); POTASSIUM 3.7 MMOL/L (3.6-5.0)
[2021-06-24 06:55] LABS: CALCIUM 8.2 MG/DL (8.5-10.1)
[2021-06-24 06:56] LABS: TOTAL PROTEIN 5.9 GM/DL (6.4-8.2)
[2021-06-24 06:58] LABS: BILIRUBIN,TOTAL 0.7 MG/DL (0.1-1.0)
[2021-06-24 06:59] LABS: CREATININE SERUM 0.57 MG/DL (0.60-1.30)
[2021-06-24 08:00] VITALS: BP 129/75
[2021-06-24] MEDS: NICOTINE PATCH REMOVAL TP SCH (08:58)
[2021-06-24] MEDS: NICOTINE 21 MG (NICODERM) PATCH TD SCH (08:59)
[2021-06-24 12:00] VITALS: BP 135/72
--- NOTE | 2021-06-24 13:16 | Physical Therapy Evaluation ---
PT Evaluation-General Medical Diagnosis Admission Date Jun 20, 2021 at 15:00 Medical Diagnosis: covid 19 Onset Date: Jun 20, 2021 Therapy Diagnosis Therapy Diagnosis: impaired mobility, strength, endurance Height/Weight Height (Feet): 5 Height (Inches): 2.00 Weight (Pounds): 145 Precautions Precautions/Isolations: Airborne Isolation Referral Physician: Cristiane Richards DO Reason for Referral: Evaluation/Treatment Medical History Additional Medical History Past Medical History Surgeries: Section Hypertension Anxiety Reviewed History: Yes Social History Home: Single Level Current Living Status: Significant Other Entry Into Home: Level Entry Prior Prior Level of Function SCALE: Activities may be completed with or without assistive devices. 8-Wrpxtvybwe-xrqsoso completes the activity by him/herself with no assistance from a helper. 5-Set-up or Clean-up Assistance-helper sets up or cleans up; patient completes activity. [place] assists only prior to or following the activity. 4-Supervision or Touching Assistance-helper provides verbal cues and/or touching/steadying and/or contact guard assistance as patient completes activity. Assistance may be provided throughout the activity or intermittently. 3-Partial/Moderate Assistance-helper does LESS THAN HALF the effort. [place] lifts, holds or supports trunk or limbs, but provides less than half the effort. 2-Substantial/Maximal Assistance-helper does MORE THAN HALF the effort. [place] lifts or holds trunk or limbs and provides more than half the effort. 5-Mjobdxoyh-sondaz does ALL the effort. Patient does none of the effort to complete the activity. Or, the assistance of 2 or more helpers is required for the patient to complete the activity. If activity was not attempted, code reason: 7-Patient Refused. 9-Not Applicable-not attempted and the patient did not perform the activity before the current illness, exacerbation or injury. 10-Not Attempted due to Environmental Limitations-(lack of equipment, weather restraints, etc.). 88-Not Attempted due to Medical Conditions or Safety Concerns. Bed Mobility: 6 Transfers (B,C,W/C): 6 Gait: 6 Indoor Mobility (Ambulation): Independent PT Evaluation-Current Subjective Patient in bed pre tx, agrees to PT, has no complaints of pain. Pt/Family Goals to be independent at home Objective Patient Orientation: Person, Unable to Assess, Mumbles ROM/Strength ROM Lower Extremities WNL Strength Lower Extremities 3+/5 gross BLE Sensory Hearing: Functional Sensation Right Lower Extremit: Intact Sensation Left Lower Extremity: Intact Transfers Roll Left to Right (QC): 6 Sit to Lying (QC): 6 Lying to Sitting/Side of Bed(Q: 6 Sit to Stand (QC): 3 Chair/Gfa-iv-Helns Xfer(QC): 4 Patient has some difficulty with supine to sit but can do it without assist. Patient has very poor balance immediately upon standing and needs min assist to keep from falling, during transfers she needed CGA, cues for hand placement and safety. Gait Does the Patient Walk?: Yes Mode of Locomotion: Walk Anticipated Mode of Locomotion: Walk Walk 10 feet (QC): 4 Distance: 30' Gait Assistive Device: FWW Comments/Gait Description CGA, unsteady, needs steadying assistance during ambulation, cues for safety and direction Balance Sitting Static: Normal Sitting Dynamic: Normal Standing Static: Poor Standing Dynamic: Poor Treatment supine BLE exercises x20 (AP, QS, HS) Assessment/Needs Patient in bed post tx with nurse call, phone, tray, bed alarm on. Patient has impaired mobility, strength, endurance. Patient is unsteady with standing and ambulation and needs occasional assist with balance or she would fall. Rehab Potential: Fair PT Group Home Goals Group Home Goals PT Group Home Goals Time Frame: Jul 01, 2021 Roll Left & Right (QC): 6 Sit to Lying (QC): 6 Lying-Sitting on Side/Bed(QC): 6 Sit to Stand (QC): 4 (SBA) Chair/Act-oo-Acbzb Xfer(QC): 4 (SBA) Walk 10 feet (QC): 4 (SBA) Walk 50ft with 2 Turns (QC): 4 (SBA) PT Plan Problem List Problem List: Activity Tolerance, Functional Strength, Safety, Balance, Gait, Transfer, ROM Treatment/Plan Treatment Plan: Continue Plan of Care Treatment Plan: Education, Functional Activity Krsytle, Functional Strength, Gait, Safety, Therapeutic Exercise, Transfers Treatment Duration: Jul 01, 2021 Frequency: 6 times per week Patient and/or Family Agrees t: Yes Safety Risks/Education Patient Education: Gait Training, Transfer Techniques, Correct Positioning, Safety Issues Teaching Recipient: Patient Teaching Methods: Demonstration, Discussion Response to Teaching: Reinforcement Needed Discharge Recommendations Plan Patient will perform bed mobility and transfer training, balance and endurance training, functional strengthening, gait training, and education, to improve functional mobility and independence at home. Therapy Discharge Recommendati: Scheduled Assistance, Home & Family, Post Acute PT Time/GCodes Time In: 1250 Time Out: 1300 Total Billed Treatment Time: 10 Total Billed Treatment 1 visit KELIN SCOTT PT Jun 24, 2021 13:16
[2021-06-24] MEDS: VANCOMYCIN INJECTION 1,250 MG in NS (IVPB) 250 ML IV SCH (14:16)
[2021-06-24] MEDS ORDERED: BISACODYL 10 MG SUPP (DULCOLAX) PR PRN (15:00)
[2021-06-24] MEDS: AZITHROMYCIN 500 MG/NS 250 ML IVPB IV SCH ×2 (15:15)
--- NOTE | 2021-06-24 15:26 | Occupational Therapy Eval ---
OT Evaluation-General/PLF Medical Diagnosis Admission Date Jun 20, 2021 at 15:00 Medical Diagnosis: ARF, Severe sepsis for pneumonia, Covid-19 Onset Date: Jun 20, 2021 Therapy Diagnosis Therapy Diagnosis: Weakness, Decreased ADL skills Height/Weight Height (Feet): 5 Height (Inches): 2.00 Weight (Pounds): 145 Precautions Precautions/Isolations: Airborne Isolation Weight Bear Status Weight Bearing Restriction: Weight Bearing/Tolerated Referral Physician: Cristiane Richards DO Referral Reason: Activity Tolerance, Self Care, Evaluation/Treatment, Strengthening/ROM Medical History Pertinent Medical History: HTN Additional Medical History Anxiety Reviewed History: Yes Social History Home: Single Level Current Living Status: Significant Other Entry Into Home: Level Entry ADL-Prior Level of Function SCALE: Activities may be completed with or without assistive devices. 8-Nnfctayggh-jbfqmzc completes the activity by him/herself with no assistance from a helper. 5-Set-up or Clean-up Assistance-helper sets up or cleans up; patient completes activity. [place] assists only prior to or following the activity. 4-Supervision or Touching Assistance-helper provides verbal cues and/or touching/steadying and/or contact guard assistance as patient completes activity. Assistance may be provided throughout the activity or intermittently. 3-Partial/Moderate Assistance-helper does LESS THAN HALF the effort. [place] lifts, holds or supports trunk or limbs, but provides less than half the effort. 2-Substantial/Maximal Assistance-helper does MORE THAN HALF the effort. [place] lifts or holds trunk or limbs and provides more than half the effort. 9-Dbxdrofdi-dgsfej does ALL the effort. Patient does none of the effort to complete the activity. Or, the assistance of 2 or more helpers is required for the patient to complete the activity. If activity was not attempted, code reason: 7-Patient Refused. 9-Not Applicable-not attempted and the patient did not perform the activity before the current illness, exacerbation or injury. 10-Not Attempted due to Environmental Limitations-(lack of equipment, weather restraints, etc.). 88-Not Attempted due to Medical Conditions or Safety Concerns. ADL PLOF Comments Pt. verbalizes that she lives with her boyfriend of 15 years. She states that he assists her as needed with bathing, dressing, and any other needs she has, as she has seizures occasionally. Pt. 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 reports that she does not use an assistive device for ambulation. Self Care: Needed Some Help Functional Cognition: Unknown DME/Equipment: Tub/Shower Drive Self: No OT Current Status Subjective Pt. states that she is tired, but reports no pain. Appearance Pt. in bed. Smiles and agrees to work with therapy. Mental Status/Objective Patient Orientation: Unable to Assess Attachments: Oxygen Current Hand Dominance: Right Upper Extremity ROM Limited bilateral UE. Please see note below. Upper Extremity Strength 3/5 overall strength. ADL-Treatment Eating (QC): 3 (Min assist) On/Off Footwear (QC): 2 Pt. seen by Occupational therapy to determine current functional abilities with daily tasks. Pt. somewhat difficult to understand. She does not have dentation and has to repeat self at times. Pt. agrees to sit on side of bed, but when attempting to transfer at first, she lifts her arm to grasp for side of bed, and seems to forget steps for the transfer. Requires cues on where to put arms, and then requires mod assist for supine-sit. Pt. able to sit on EOB with appropriate balance, but unable to doff/don slipper socks. Pt. stands several times with min assist. OT notes ataxic type movement, almost athetoid in nature. Transfer unsafe without another person present. OT attempts to gain as much information about pt's baseline as possible, but pt. unable to articulate what she was physically doing before coming into hospital. She does state that she doesn't use a walker, and that her boyfriend helps her if she needs it. States that she typically "walks around." Pt's lunch arrives, and OT has pt. attempt to set up her own tray. Note that pt's right hand is in flexor tone type pattern, but that she is able to hold fork once it is placed in her hand. OT cuts up food. Pt. is able to fork some to mouth, but then states that it is still not small enough. OT cuts into smaller pieces. Pt. eats a little more, but does not seem to know how manage her drinks. Decides that she does not want to eat the rest of her food, and so OT removes it. Pt. is able to stand again with min assist, and take small steps toward HOB with min assist. Note unsteady gait. Transfers sit-supine with SBA. All needs met. Notified nursing that at this time, therapy is unaware of pt's previous baseline pattern. Currently, pt. has difficulty with basic self care, movement patterns with transfers and standing, and cognition. Pt. does indicate that she has seizures, but does not report any other previous medical history that would be pertinent. Education OT Patient Education: Correct positioning, Modified ADL techniques, Progress toward Goal/Update tx plan, Purpose of tx/functional activities, Reviewed precautions, Rehab process, Transfer techniques Teaching Recipient: Patient Teaching Methods: Demonstration, Discussion Response to Teaching: Verbalize Understanding, Reinforcement Needed OT Short Term Goals Short Term Goals Time Frame: Jul 01, 2021 Eatin Oral hygiene: 3 Toileting hygiene: 3 Upper body dressin Lower body dressin Putting on/taking off footwear: 3 OT Prison Goals Wildlife Officer Goals Time Frame: Jul 08, 2021 Eating (QC): 5 Oral Hygiene (QC): 5 Toileting Hygiene (QC): 4 Shower/Bathe Self (QC): 4 Upper Body Dressing (QC): 5 Lower Body Dressing (QC): 4 On/Off Footwear (QC): 4 Additional Goals: 1-Demonstrate ADL Tasks, 2-Verbalize Understanding, 3- ImproveStrength/Krystle 1=Demonstrate adherence to instructed precautions during ADL tasks. 2=Patient will verbalize/demonstrate understanding of assistive devices/modifications for ADL. 3=Patient will improve strength/tolerance for activity to enable patient to perform ADL's. OT Education/Plan Problem List/Assessment Assessment: Decreased Activ Tolerance, Dependent Transfers, Impaired Cognition, Impaired Coordination, Impaired Funct Balance, Impaired I ADL's, Impaired Self- Care Skills, Restricted Funct UE ROM Discharge Recommendations Plan/Recommendations: Continue POC Therapy Discharge Recommendati: Post Acute OT Treatment Plan/Plan of Care Treatment,Training & Education: Yes Patient would benefit from OT for education, treatment and training to promote independence in ADL's, mobility, safety and/or upper extremity function for ADL's. Plan of Care: ADL Retraining, Functional Mobility, UE Funct Exercise/Act Treatment Duration: Jul 08, 2021 Frequency: 5 times per week Estimated Hrs Per Day: .25 hour per day Agreement: Yes Rehab Potential: Fair Time/GCodes Start Time: 13:20 Stop Time: 13:55 Total Time Billed (hr/min): 35 Billed Treatment Time 1, EVH x 15minutes, ADL x 20minutes JASWANT SANCHEZ OT Jun 24, 2021 15:26
[2021-06-24 16:21] VITALS: BP 118/69
[2021-06-24 19:24] VITALS: BP 140/73
[2021-06-24 23:13] VITALS: BP 130/84
[2021-06-25] MEDS: CEFEPIME 1,000 MG/SWFI 10 ML IV PUSH IV SCH ×6 (02:25→14:19)
[2021-06-25] MEDS: VANCOMYCIN INJECTION 1,250 MG in NS (IVPB) 250 ML IV SCH ×2 (02:30→14:18)
[2021-06-25 04:52] VITALS: BP 151/75
--- NOTE | 2021-06-25 05:29 | Progress Note - Hospitalist ---
Subjective HPI/CC On Admission Date Seen by Provider: Jun 25, 2021 Time Seen by Provider: 11:00 Chief complaint: Severe sepsis for pneumonia and COVID-19 History present illness: This is a 55-year-old white female unvaccinated against COVID-19 who presented to the ER with weakness found to have hypotension from pneumonia and COVID-19. She received aggressive IV fluids and she is currently doing very well. Patient reports eating well at suppertime today. We will monitor in the ICU due to hypotension and continue IV antibiotics. Subjective/Events-last exam Pt doing really well Wants to go home on home health but therapy doesnt think she is safe to go home PT and OT will continue to monitor May need intermediate placement Remains on two liters Review of Systems General: Fatigue Pulmonary: Dyspnea Focused Exam Time of Focused Exam: 15:54 Objective Exam Vital Signs Vital Signs Date Time Temp Pulse Resp B/P (MAP) Pulse Ox O2 Delivery O2 Flow Rate FiO2 06/25/21 18:20 06/25/21 15:54 36.6 84 20 98 Nasal Cannula 2.00 Capillary Refill : Less Than 3 Seconds General Appearance: No Apparent Distress, WD/WN, Chronically ill Respiratory: Lungs Clear, Normal Breath Sounds Cardiovascular: Regular Rate, Rhythm Neurologic/Psychiatric: Alert, Oriented x3 Results/Procedures Lab Laboratory Tests 06/25/21 05:57 Patient resulted labs reviewed. Assessment/Plan Assessment and Plan Assess & Plan/Chief Complaint Assessment: Severe sepsis Pneumonia COVID-19 Hypertension Hypokalemia Plan: ICU care Monitor blood pressure IV antibiotics 06/21/2021: IV antibiotics Transfer the floor Chronically ill 06/22/2021: IV antibiotics Oxygen Monitor closely Replace potassium 06/23/2021: Maintain oxygen Monitor closely 06/24/2021: Monitor closely PT and OT 06/24/2021: Discharge planned Diagnosis/Problems Diagnosis/Problems (1) Acute hypoxemic respiratory failure Status: Acute (2) COVID-19 Status: Acute (3) Syncope Status: Acute Qualifiers: Syncope type: unspecified Qualified Codes: R55 - Syncope and collapse (4) Hypokalemia Status: Acute (5) Pneumonia Status: Acute Qualifiers: Pneumonia type: due to unspecified organism Laterality: unspecified laterality Lung location: unspecified part of lung Qualified Codes: J18.9 - Pneumonia, unspecified organism MUSA ORTA DO Jun 25, 2021 05:29
[2021-06-25] MEDS: inSUlin ASPART (NovoLOG) 1 UNIT/0.01 ML (CHARGE PER UNIT) SC SCH ×3 (05:38→15:56)
[2021-06-25 06:55] LABS: BASOPHILS # (AUTO) 0.1 10^3/uL (0.0-0.1); BASOPHILS % (AUTO) 1 % (0-10); EOSINOPHILS # (AUTO) 0.2 10^3/uL (0.0-0.3); EOSINOPHILS % (AUTO) 2 % (0-10); HEMATOCRIT 37 % (35-52); HEMOGLOBIN 12.2 g/dL (11.5-16.0); LYMPHOCYTES # (AUTO) 2.4 10^3/uL (1.0-4.0); LYMPHOCYTES % (AUTO) 22 % (12-44); MEAN CORPUSCULAR HEMOGLOBIN 29 pg (25-34); MEAN CORPUSCULAR HGB CONC 33 g/dL (32-36); MEAN CORPUSCULAR VOLUME 87 fL (80-99); MEAN PLATELET VOLUME 10.6 fL (9.0-12.2); MONOCYTES # (AUTO) 1.8 10^3/uL (0.0-1.0); MONOCYTES % (AUTO) 16 % (0-12); NEUTROPHILS # (AUTO) 5.7 10^3/uL (1.8-7.8); NEUTROPHILS % (AUTO) 52 % (42-75); PLATELET COUNT 388 10^3/uL (130-400)
[2021-06-25 07:04] LABS: ALBUMIN 2.8 GM/DL (3.2-4.5)
[2021-06-25 07:05] LABS: POTASSIUM 4.2 MMOL/L (3.6-5.0)
[2021-06-25 07:06] LABS: CALCIUM 8.6 MG/DL (8.5-10.1)
[2021-06-25 07:07] LABS: TOTAL PROTEIN 6.4 GM/DL (6.4-8.2)
[2021-06-25 07:09] LABS: BILIRUBIN,TOTAL 0.6 MG/DL (0.1-1.0)
[2021-06-25 07:11] LABS: CREATININE SERUM 0.63 MG/DL (0.60-1.30)
[2021-06-25 07:25] VITALS: BP 141/74
[2021-06-25] MEDS: NICOTINE 21 MG (NICODERM) PATCH TD SCH (09:24)
[2021-06-25] MEDS: NICOTINE PATCH REMOVAL TP SCH (09:24)
[2021-06-25] MEDS: KCL 20 MEQ TAB (K-DUR) PO SCH (09:55)
[2021-06-25 11:14] VITALS: BP 136/66
--- NOTE | 2021-06-25 11:42 | Physical Therapy Daily Note ---
PT Daily Note-Current Subjective Patient reports she hope to go home. Mental Status Patient Orientation: Person, Time, Situation Attachments: Oxygen Transfers SCALE: Activities may be completed with or without assistive devices. 0-Cjxlkxjawb-fgwrhiw completes the activity by him/herself with no assistance from a helper. 5-Set-up or Clean-up Assistance-helper sets up or cleans up; patient completes activity. [place] assists only prior to or following the activity. 4-Supervision or Touching Assistance-helper provides verbal cues and/or touching/steadying and/or contact guard assistance as patient completes activity. Assistance may be provided throughout the activity or intermittently. 3-Partial/Moderate Assistance-helper does LESS THAN HALF the effort. [place] lifts, holds or supports trunk or limbs, but provides less than half the effort. 2-Substantial/Maximal Assistance-helper does MORE THAN HALF the effort. [place] lifts or holds trunk or limbs and provides more than half the effort. 8-Qvruzmpxd-cpnjhd does ALL the effort. Patient does none of the effort to complete the activity. Or, the assistance of 2 or more helpers is required for the patient to complete the activity. If activity was not attempted, code reason: 7-Patient Refused. 9-Not Applicable-not attempted and the patient did not perform the activity before the current illness, exacerbation or injury. 10-Not Attempted due to Environmental Limitations-(lack of equipment, weather restraints, etc.). 88-Not Attempted due to Medical Conditions or Safety Concerns. Roll Left & Right (QC): 6 Lying to Sitting/Side of Bed(Q: 6 Sit to Stand (QC): 6 Chair/Shu-se-Rugct Xfer(QC): 6 Gait Training Does the Patient Walk?: Yes Distance: 250' Walk 10 feet (QC): 6 Walk 50 ft with 2 Turns(QC): 6 Walk 150 ft (QC): 6 Gait Assistive Device: None slightly unsteady with self correct/difficulty with negotiating O2 tubing. Assessment Patient is up in recliner with needs met. Patient is able to self correct with ambulation, however, O2 tubing negotiating is difficult. Patient reports boyfriend will help at home. SW and physician notified. PT Intermediate Goals Intermediate Goals PT Intermediate Goals Time Frame: Jul 01, 2021 Roll Left & Right (QC): 6 Sit to Lying (QC): 6 Lying-Sitting on Side/Bed(QC): 6 Sit to Stand (QC): 4 (SBA) Chair/Qiv-yf-Qnhjw Xfer(QC): 4 (SBA) Walk 10 feet (QC): 4 (SBA) Walk 50ft with 2 Turns (QC): 4 (SBA) PT Plan Treatment/Plan Treatment Plan: Continue Plan of Care Treatment Plan: Education, Functional Activity Krystle, Functional Strength, Gait, Safety, Therapeutic Exercise, Transfers Treatment Duration: Jul 01, 2021 Frequency: 6 times per week Patient and/or Family Agrees t: Yes Time/GCodes Time In: 1030 Time Out: 1040 Total Billed Treatment Time: 10 Total Billed Treatment 1 visit FA 10 min LAN DAWKINS PT Jun 25, 2021 11:42
[2021-06-25] MEDS ORDERED: DEXA6TAB6 PO (12:56)
[2021-06-25] MEDS ORDERED: CEFD300C3 PO (12:56)
--- NOTE | 2021-06-25 12:59 | D/C HH Face to Face Order ---
D/C Face to Face Orders Reconcile Patient Problems Problems Reviewed?: Yes Instructions for Patient Via [facility], Patient Instructions/FollowUp: PCP 1 week Physician to follow Patient: [facility] Discharge Diet for Home: No Restrictions Patient Problems: PNA COVID Patient Data-Allergies,Ht & Wt Patient Allergies: Coded Allergies: Penicillins (Verified Allergy, Unknown, 06/20/21) Height (Feet): 5 Height (Inches): 2.00 Weight (Pounds): 145 Home Health Need/Face to Face Date of Face to Face: Jun 25, 2021 Clinical Findings: Generalized weakness and fatigue, Instability, Muscle weakness I have seen Pt jjcx-qi-wzrf: Yes Discharged To: Home Diagnosis/Conditions: COVID PNA Patient is Homebound due to: CognItive deficits, Shortness of breath/distress Homebound Status Due to the above stated illness, injury or surgical procedure (medical condition or diagnosis) and associated clinical findings, the patient is homebound because of his/her inability to leave home except with aid of a supportive device and/or person AND leaving the home requires a considerable and taxing effort or is medically contraindicated. Pt req the following assistanc: Walker Home Health Nursing Orders Home Health Services Order: Nursing Services, Solidworks Designer-Evaluate & [place] t, Physical Therapy-Evaluate & Treat Home Health Infusion Therapy Line Start Date: Jun 20, 2021 Certify Stmt I certify that this patient is under my care and that I, a nurse practitioner or a physician; a prosthetics assistant working with me, had a face to face encounter that - meets the physician face to face encounter requirements with this patient as dated. MUSA ORTA DO Jun 25, 2021 12:59
--- NOTE | 2021-06-25 13:00 | Discharge Summary ---
Discharge Summary Hospital Course Was the Problem List Reviewed?: Yes Problems/Dx: (1) Acute hypoxemic respiratory failure Status: Acute (2) COVID-19 Status: Acute (3) Syncope Status: Acute Qualifiers: Qualified Codes: R55 - Syncope and collapse (4) Hypokalemia Status: Acute (5) Pneumonia Status: Acute Qualifiers: Qualified Codes: J18.9 - Pneumonia, unspecified organism Hospital Course Date of Admission: Jun 20, 2021 at 15:00 Admission Diagnosis : Family Physician/Provider: [place] Date of Discharge: 06/25/21 Discharge Diagnosis: COVID-19 pneumonia, acute hypoxic respiratory failure, prior CVA, dysarthria making it difficult to communicate Hospital Course: Patient had an uneventful hospital course when she was admitted for shortness of breath with fever found to have COVID-19 pneumonia with bacterial infiltrate on chest x-ray. Patient was given standard COVID-19 protocol meds and ultimately stabilized. She tolerated IV antibiotics and ultimately required 2 L of oxygen at discharge. PT and OT consulted recommended home health and those orders were initiated. Labs and Pending Lab Test: Laboratory Tests 06/24/21 16:33: Glucometer 97 06/24/21 21:02: Glucometer 94 06/25/21 05:09: Glucometer 84 06/25/21 05:57: White Blood Count 11.0, Red Blood Count 4.24, Hemoglobin 12.2, Hematocrit 37, M joanne Corpuscular Volume 87, Mean Corpuscular Hemoglobin 29, Mean Corpuscular Hemoglobin Concent 33, Red Cell Distribution Width 12.8, Platelet Count 388, Mean Platelet Volume 10.6, Immature Granulocyte % (Auto) 7, Neutrophils (%) (Auto) 52, Lymphocytes (%) (Auto) 22, Monocytes (%) (Auto) 16H, Eosinophils (%) (Auto) 2, Basophils (%) (Auto) 1, Neutrophils # (Auto) 5.7, Lymphocytes # (Auto) 2.4, Monocytes # (Auto) 1.8H, Eosinophils # (Auto) 0.2, Basophils # (Auto) 0.1, Immature Granulocyte # (Auto) 0.8H, Sodium Level 136, Potassium Level 4.2, Chloride Level 103, Carbon Dioxide Level 22, Anion Gap 11, Blood Urea Nitrogen 9, Creatinine 0.63, Estimat Glomerular Filtration Rate 99, BUN/Creatinine Ratio 14, Glucose Level 87, Calcium Level 8.6, Corrected Calcium 9.6, Total Bilirubin 0.6, Aspartate Amino Transf (AST/SGOT) 49H, Alanine Aminotransferase (ALT/SGPT) 52, Alkaline Phosphatase 126, Total Protein 6.4, Albumin 2.8L 06/25/21 11:17: Glucometer 142H Microbiology 06/20/21 Blood Culture - Preliminary, Resulted No growth 06/20/21 MRSA Screen - Final, Complete Home Meds Active Cefdinir 300 Mg Capsule 300 Mg PO BID Decadron (Dexamethasone) 6 Mg Tablet 6 Mg PO DAILY Reported Amlodipine Besylate 10 Mg Tablet 10 Mg PO DAILY Ventolin Hfa (Albuterol Sulfate) 1 Puff Puff 2 Puff INH Q6H PRN Hydrochlorothiazide 50 Mg Tablet 50 Mg PO DAILY Lisinopril 20 Mg Tablet 20 Mg PO DAILY Fluticasone-Salmeterol 250-50 (Fluticasone Propion/Salmeterol) 1 Each Blst.w.dev 1 Puff INH BID Assessment/Pt Instructions Replaced by [facility] in 1 week Discharge Planning: <30 minutes discharge planning Discharge Instructions Discharge Diet: No Restrictions Discharge Physical Examination Vital Signs Vital Signs Date Time Temp Pulse Resp B/P (MAP) Pulse Ox O2 Delivery O2 Flow Rate FiO2 06/25/21 11:14 36.5 75 20 136/66 (89) 98 Nasal Cannula 2.00 General Appearance: No Apparent Distress, WD/WN Respiratory: No Accessory Muscle Use, No Respiratory Distress, Crackles, Decreased Breath Sounds Cardiovascular: Regular Rate, Rhythm Neurologic/Psychiatric: Alert, Oriented x3 Allergies: Coded Allergies: Penicillins (Verified Allergy, Unknown, 06/20/21) Discharge Summary Date of Admission Jun 20, 2021 at 15:00 Date of Discharge Discharge Date: Jun 25, 2021 Admission Diagnosis Assessment: Severe sepsis Pneumonia COVID-19 Hypertension Plan: ICU care Monitor blood pressure IV antibiotics Discharge Diagnosis Assessment: Severe sepsis Pneumonia COVID-19 Hypertension Hypokalemia Plan: ICU care Monitor blood pressure IV antibiotics 06/21/2021: IV antibiotics Transfer the floor Chronically ill 06/22/2021: IV antibiotics Oxygen Monitor closely Replace potassium 06/23/2021: Maintain oxygen Monitor closely 06/24/2021: Monitor closely PT and OT (1) Acute hypoxemic respiratory failure Status: Acute (2) COVID-19 Status: Acute (3) Syncope Status: Acute Qualifiers: Qualified Codes: R55 - Syncope and collapse (4) Hypokalemia Status: Acute (5) Pneumonia Status: Acute Qualifiers: Qualified Codes: J18.9 - Pneumonia, unspecified organism MUSA ORTA DO Jun 25, 2021 13:00
[2021-06-25 15:54] VITALS: BP 175/90
== END 2021-06-25 18:20 | disposition home health service (06) | DRG 871 ==
LOC: EDUNIT# 12:55 → ER 12:59 → ICU 15:00 → 4TH 06-21 14:13
PROVIDERS: ADMIT Internal Medicine; ATTEND Internal Medicine
DX: A41.9 Sepsis, unspecified organism (principal); R65.21 Severe sepsis with septic shock; U07.1 COVID-19; J12.82 Pneumonia due to coronavirus disease 2019; J96.01 Acute respiratory failure with hypoxia; J44.0 Chronic obstructive pulmonary disease with (acute) lower respiratory infection; N17.9 Acute kidney failure, unspecified; E11.9 Type 2 diabetes mellitus without complications; F41.9 Anxiety disorder, unspecified; F17.210 Nicotine dependence, cigarettes, uncomplicated; E87.6 Hypokalemia; Z79.4 Long term (current) use of insulin; Z88.0 Allergy status to penicillin; R55 Syncope and collapse; Z86.73 Personal history of transient ischemic attack (TIA), and cerebral infarction without residual deficits; R47.1 Dysarthria and anarthria; E11.65 Type 2 diabetes mellitus with hyperglycemia; N18.9 Chronic kidney disease, unspecified; I12.9 Hypertensive chronic kidney disease with stage 1 through stage 4 chronic kidney disease, or unspecified chronic kidney disease
CPT/HCPCS: 36415; 36569; 71045; 76937; 80048; 80053; 80202; 81000; 82805; 82947; 83605; 83735; 83880; 84100; 84145; 84484; 85007; 85025; 85027; 85379; 86141; 87040; 87081; 93005; 94640; 94760; 94761; 96361; 96374; 96375; 99291